=== PATIENT | female | born 1995 | race Caucasian/White ===

== ENCOUNTER → 2017-05-11 | Outpatient (CLI) | payer BC ==
--- NOTE | 2017-05-11 15:18 | DIAGNOSTIC IMAGING REPORT ---
Right upper quadrant ultrasound GALLBLADDER-ABD LIMITED CLINICAL HISTORY: MODERATE NAUSEA nausea. Vomiting. TECHNIQUE: Ultrasound COMPARISON STUDY: None FINDINGS: Gallbladder is normal. No shadowing gallstones. Common bile duct 4 mm. Liver is uniform. Pancreas and right kidney are unremarkable. IMPRESSION: Normal study Electronically signed by: Doug Skaggs M.D. 05/11/2017 3:17 PM Dictated Date/Time: 05/11/2017 3:16 PM
[2017-05-11 15:48] LABS: BASO % 0.2 %; BASO ABS # 0.01 K/uL (0-0.2); COMPLETE YES; EOS % 2.6 %; HEMATOCRIT 43.2 % (37-47); IG% 0.2 %; LYMPH % 12.9 %; LYMPH ABS # 0.54 K/uL (1.2-3.4); MEAN CELL VOLUME 85.9 fL (80-100); MEAN CORPUSCULAR HEMOGLOBIN 28.2 pg (25-34); MEAN CORPUSCULAR HGB CONC 32.9 g/dl (32-36); MEAN PLATELET VOLUME 9.2 fL (7.4-10.4); NEUT % 72.1 %; PLATELET COUNT 253 K/uL (130-400); RED BLOOD COUNT 5.03 M/uL (4.2-5.4); WHITE BLOOD COUNT 4.18 K/uL (4.8-10.8)
[2017-05-11 16:57] LABS: ALB/GLOB RATIO 1.1 (0.9-2); ALKALINE PHOSPHATASE 94 U/L (45-117); ALT/SGPT 28 U/L (12-78); AMYLASE 34 U/L (25-115); AST/SGOT 21 U/L (15-37); BLOOD UREA NITROGEN 11 mg/dl (7-18); BUN/CREATININE RATIO 17.1 (10-20); CALCIUM 8.9 mg/dl (8.5-10.1); CARBON DIOXIDE 22 mmol/L (21-32); CHLORIDE 107 mmol/L (98-107); CREATININE 0.66 mg/dl (0.60-1.20); GLUCOSE 75 mg/dl (70-99); POTASSIUM 3.5 mmol/L (3.5-5.1); SODIUM 140 mmol/L (136-145)
== END | disposition home or self-care (01) ==
LOC: C.ULTR 14:43
PROVIDERS: ATTEND Nurse Practitioner
DX: R11.0 Nausea (principal)